=== PATIENT | male | born 1980 | race Caucasian/White ===

== ENCOUNTER 2019-05-08 18:04 | Emergency (ER) | payer SELFPAY ==
[2019-05-08 18:05] VITALS: BP 134/71; PULSE 98; RESP 14; TEMP 36.8; O2SAT 98; BMI 28.0
--- NOTE | 2019-05-08 18:45 | ED.VISSUMM ---
- ER Visit Summary Date of Service: 05/08/19 Chief Complaint: Forehead abscess History of Present Illness: The patient is a 39 M with pain and swelling to his right forehead for 2 days. No fevers or other symptoms. Physical Examination: Erythema and induration approximately 2 cm in diameter to the right forehead just above the eyebrow. No fluctuance. No bleeding. No significant warmth. Cranial nerves grossly intact. Otherwise skin appears normal. Test Results: None indicated Emergency Department Course and Treatment: Patient did not want I&D and I did not feel like I&D would be beneficial. We are in agreement. Will treat with warm compresses, Bactrim, Keflex. Follow-up with primary care. Treatment Plan: As above Disposition: Discharge Impression: 1. Right forehead cutaneous infection This note was generated with [employer] dictation software. It may contain incorrect words, spelling, and punctuation that were not noted in review of the chart prior to signing ED Disposition - Plan for ED Patient: Referrals: Care Physician,No Primary [Primary Care Provider] -
--- NOTE | 2019-05-08 18:47 | ED.DEP ---
ED Disposition - Plan for ED Patient: Instructions: CELLULITIS, Facial Prescriptions: Smz/Tmp Ds [Bactrim Ds] 1 tab PO BID #14 tab Prescription Printed Cephalexin [Keflex] 500 mg PO Q6 #28 cap Prescription Printed Referrals: Sabina Leary [NON-STAFF] -
[2019-05-08] MEDS: Smz/Tmp Ds Tablet 1 TABLET PO (18:53)
[2019-05-08] MEDS: Cephalexin 250 MG Capsule 500 MG PO (18:53)
[2019-05-08 18:55] VITALS: RESP 16
== END 2019-05-08 18:56 | disposition home or self-care (01) ==
LOC: ED 18:49
PROVIDERS: Emergency Provider Emergency Medicine
DX: L08.9 Local infection of the skin and subcutaneous tissue, unspecified (principal); Z72.0 Tobacco use
CPT/HCPCS: 99283

== ENCOUNTER 2022-12-13 22:30 | Emergency (ER) | payer SELFPAY ==
[2022-12-13 22:30] VITALS: BP 138/100; PULSE 83; RESP 15; TEMP 36.4; O2SAT 97; BMI 26.5
[2022-12-13] MEDS: Tetracaine 0.5% Ophthalmic Bottle 3 DRP LEFT EYE (22:44)
[2022-12-13] MEDS: Fluorescein 1 MG STRIP 1 STRIP LEFT EYE (22:44)
--- NOTE | 2022-12-13 22:45 | EX.ED.VIS.EY ---
HPI History of Present Illness Chief Complaint: Eye Problem Informant: patient Associated Symptoms Associated Symptoms - Eyes: Drainage (Tearing), Pain and Redness Visual Changes: left: Blurred vision (Clears when tearing is better) History of injury: Yes and Chemical exposure Visual correction: None Narrative Narrative: Patient presents around 6 or 7 hours after accidentally dropping PVC cement in his left eye while he was using it on a pipe and a plumbing application. He rinsed right away afterwards, but still having pain redness and lots of watering. When he wipes away the watering, the vision seems to be okay and at baseline. PFSH PFS Medical History no medical history no medical history Home Medications Subutex 8 mg PO BID 05/10/17 [History Last Taken Unknown] cephalexin 500 mg capsule (Keflex) 500 mg PO 4X/DAY ##40 05/10/17 [Rx Last Taken Unknown] cephalexin 500 mg capsule 500 mg PO Q6 #28 caps 05/08/19 [Rx Last Taken Unknown] sulfamethoxazole 800 mg-trimethoprim 160 mg tablet 1 tab PO BID #14 tabs 05/08/19 [Rx Last Taken Unknown] Allergy/AdvReac Type Severity Reaction Status Date / Time No Known Allergies Allergy Verified 12/13/22 22:33 Family History no significant family his Surgical History no surgical history Social History Smoking Status: Former smoker ROS ROS ED Constitutional Constitutional ED: Denies chills or fever(s) Eyes Eyes: Reports as per HPI, blurry vision left, erythema and eye pain ENT ENT ED: Denies ear pain, rhinorrhea or sore throat Neurologic Neurologic: Denies headache(s), paresthesias or weakness EXAM Physical Exam Const Vital Signs: 12/13/22 22:30 Temperature 97.6 F L Temperature Source Temporal Pulse Rate 83 Respiratory Rate 15 Blood Pressure 138/100 H Blood Pressure Mean 112 Pulse Ox 97 Oxygen Delivery Method Room Air Positive well nourished and well developed General Appearance ED: well developed and NAD HEENT atraumatic; Negative for tenderness Mouth ED: Yes oral and palatal mucosa normal and Yes lips normal Mouth: oral and palatal mucosa normal and lips normal Eyes PERRL and EOMs intact bilaterally Eyes Narrative: Diffuse conjunctival injection left eye no chemosis no obvious foreign body, mild blepharospasm and photophobia. Tearing but no purulent discharge. Neuro oriented x3, CN's II-XII intact bilaterally and gait normal Sensorium / Orientation: alert Skin Lesions: no lesions Rashes: no rashes MDM MDM MDM Narrative Medical decision making narrative: I discussed with poison control. They indicate that the solvents in the cement are likely irritants, they are not necessarily alkaline or acidic, and they simply recommend profuse irrigation when it comes to the chemical exposure itself. I evaluated his eye with a slit lamp, we found a foreign body and removed to see the procedure note, obtained visual acuities, anesthetized his eye with tetracaine, followed by a liter of profuse irrigation using a Byron lens which he tolerated well. Prior to any medication visual acuities are as follows: OD 20/20, OS 20/25, OU 20/20. Reexamined afterwards with the slit-lamp, I see no foreign material or changes compared with the initial slit-lamp examination documented in the procedure note, very superficial corneal abrasion, it is possible this was caused by the foreign body and it is also possible it was related to removing the foreign body very gently with cotton swab. Regardless it is very superficial and should heal quickly. After irrigation the patient is feeling much better with no pain in his eye. He was given bacitracin ophthalmic with instructions for use, and follow-up with ophthalmology if needed. He is comfortable with that plan. Procedures Other Procedures Procedure(s): Foreign body removal left eye --after anesthetizing with tetracaine, the left eye was evaluated using slit lamp with and without fluorescein staining. Fluorescein did help to identify a foreign body on the cornea that appeared to be a fine hair-appearing foreign body with a couple of pieces that took up dye that may or may not have been pieces of cement, or simply mucus from the inflammation of the eye. This was very gently removed using a sterile cotton-tipped swab. On reevaluation, there is a very small superficial corneal abrasion at this site, there is a negative Jun sign, and no other areas of dye uptake or foreign material. Discharge Plan Triage Chief Complaint: Eye Problem ED Provider: Donnie Holland Dx/Rx/DC Orders Clinical Impression: Acute foreign body of left eye, Chemical injury of left eye, Abrasion of cornea, left Instructions: ED Corneal Abrasion, ED Corneal Foreign Body, Removed Prescriptions: No Action Subutex 8 mg PO BID cephalexin [Keflex] 500 MG capsule 500 mg PO 4X/DAY Qty: 40 0RF sulfamethoxazole-trimethoprim 1 TABLET tablet 1 tab PO BID Qty: 14 0RF cephalexin 500 MG capsule 500 mg PO Q6 Qty: 28 0RF Primary Care Provider: Care Physician,No Primary Referrals: Erik Leslie MD [Med Staff - Active Staff] - (3-5 days of vision not back to normal and/or still having other eye issues) Care Physician,No Primary [Primary Care Provider] - Activity Restrictions/Additional Instructions: Use antibiotic ointment 3 times daily as needed for the next 3-5 days Disposition Disposition: Home, Self Care
[2022-12-13] MEDS: 0.9% Normal Saline 1,000 ML 999 ML IV (23:30)
[2022-12-14 00:09] VITALS: PULSE 83; RESP 15; O2SAT 97
[2022-12-14] MEDS: Neomycin/Bacitracin/Polymyxin Opth. Ointment 1 APPLIC LEFT EYE (00:19)
== END 2022-12-14 00:22 | disposition home or self-care (01) ==
PROVIDERS: Emergency Provider Emergency Medicine; Visit Provider Emergency Medicine
DX: T15.02XA Foreign body in cornea, left eye, initial encounter (principal); Z77.098 Contact with and (suspected) exposure to other hazardous, chiefly nonmedicinal, chemicals; Z87.891 Personal history of nicotine dependence
CPT/HCPCS: 96360; 99285; J7030

== ENCOUNTER 2022-12-28 09:17 | Emergency (ER) | payer SELFPAY ==
[2022-12-28 09:18] VITALS: BP 144/85; PULSE 52; RESP 18; TEMP 35.7; O2SAT 96; BMI 27.1
--- NOTE | 2022-12-28 09:27 | ED.VIS.DENTA ---
HPI History of Present Illness Chief Complaint: Dental Informant: patient Narrative Narrative: Patient presents with dental pain. Patient states he knows he has bad teeth. He will occasionally get infections in these. Sometimes they will go away on their own or drain. He states that this 1 has been sore in the right lower jaw for about 2 days. No drainage. No fevers or chills. Any chewing on that area hurts. He has no chest pain or trouble breathing or radiation from this area. He is still on Subutex. He states he does not want anything for the pain. But he would like antibiotics. He will call dentist for follow-up. PFS PFS Home Medications Subutex 8 mg PO BID 05/10/17 [History Last Taken Unknown] penicillin V potassium 500 mg tablet 500 mg PO 4X/DAY #40 tabs 12/28/22 [Rx Last Taken Unknown] Allergy/AdvReac Type Severity Reaction Status Date / Time No Known Allergies Allergy Verified 12/13/22 22:33 Social History Smoking Status: Former smoker ROS ROS ED Constitutional Constitutional ED: Denies chills, fever(s) or sweats Eyes Eyes: Denies blurry vision ENT ENT ED: Reports other Details: Throat does not hurt but he does have right-sided lower jaw dental pain as in history of present illness ; Denies ear pain, rhinorrhea or sore throat Cardiovascular Cardiovascular: Denies chest pain, palpitations or racing heartbeat Respiratory/Chest Respiratory/Chest: Denies cough or dyspnea Gastrointestinal Gastrointestinal: Denies nausea or vomiting Musculoskeletal Musculoskeletal: Denies neck pain Integumentary Denies rash Neurologic Neurologic: Denies headache(s) or paresthesias Hematologic/Lymphatic Hematologic/Lymphatic: Denies easy bleeding, easy bruising or lymphadenopathy EXAM Physical Exam Narrative Exam Narrative: Patient is awake alert no acute distress sitting quietly in the room. HEENT: I do not see any signs of external swelling yet developed. No jaw tenderness. No lymphadenopathy. But he does have multiple bad teeth eroded down toward the gums. He has slightly more erythema on the right but no swelling. Tongue is freely mobile and no swelling. No indication at all of Ludewig's angina. Neck shows no lymphadenopathy tenderness or swelling. Heart is regular with a rate about 60. No murmur. Breathing is easy unlabored with normal saturations at 96% on room air showing no hypoxia. Skin shows no rash. Joints show no tenderness or pain with motion. Const Vital Signs: 12/28/22 09:18 Temperature 96.2 F L Temperature Source Temporal Pulse Rate 52 L Respiratory Rate 18 Blood Pressure 144/85 H Blood Pressure Mean 104 Pulse Ox 96 Oxygen Delivery Method Room Air MDM MDM MDM Narrative Medical decision making narrative: Patient will be started on antibiotics. He has no allergies. He has tolerated penicillin before. We will write a prescription for this we will also give him a dental resource sheet to give him some options. We discussed returning if he gets swelling pain trouble swallowing breathing or any other concerns. Discharge Plan Triage Chief Complaint: Dental ED Provider: Enrique Ramos Dx/Rx/DC Orders Clinical Impression: Dental infection Instructions: ED Dental Abscess Prescriptions: New penicillin V potassium 500 mg tablet 500 mg PO 4X/DAY Qty: 40 0RF No Action Subutex 8 mg PO BID Primary Care Provider: Care Physician,No Primary Referrals: Care Physician,No Primary [Primary Care Provider] - Activity Restrictions/Additional Instructions: Follow-up with dentist as soon as possible. Disposition Disposition: Home, Self Care
== END 2022-12-28 09:49 | disposition home or self-care (01) ==
PROVIDERS: Emergency Provider Emergency Medicine; Visit Provider Emergency Medicine
DX: K04.7 Periapical abscess without sinus (principal); Z87.891 Personal history of nicotine dependence
CPT/HCPCS: 99282